=== PATIENT | female | born 1990 | race Caucasian/White ===

== ENCOUNTER 2018-01-20 05:03 | Emergency (ER) | payer OTHER ==
[2018-01-20] MEDS ORDERED: MAG HYDROX/AL HYDROX/SIMETH 30 ML UDC PO STA (05:27)
[2018-01-20] MEDS ORDERED: LIDOCAINE VISCOUS 2% 15 ML UDC MM STA (05:27)
--- NOTE | 2018-01-20 05:27 | ED Physician Documentation ---
PD HPI CHEST PAIN - Stated complaint Stated Complaint: CHEST PAIN - History obtained from History obtained from: Patient - History of Present Illness Timing - onset: Last night Timing - onset during: Rest Timing - duration: Days (1) Timing - details: Gradual onset, Still present Quality: Sharp, Pain (initially feeling pain substernal area and not changed with antacid. Then involved right chest and is worse with breathing. Now feeling similar to PTX she had about 10 years ago. Did have episode of symptoms similar to this in July this year. Seen in [facility] for it and had normal CXR. improved over few days with NSAIDs.) Location: Substernal, Right chest Radiation: No: Neck, Back, Abdominal Worsened by: Exertion, Inspiration. No: Eating, Movement, Palpation Associated symptoms: No: Shortness of air, Nausea, Feeling faint / dizzy, Cough Similar symptoms before: Diagnosis (pleurisy earlier this year. Recurrent PTX when younger and apical resection and pleurodesis about 10 years ago.) Recently seen: Emergency Dept (5 months ago at [facility] for similar and had normal CXR at that time.) Review of Systems Constitutional: denies: Fever, Chills Eyes: denies: Irritation Nose: reports: Rhinorrhea / runny nose (mild). denies: Congestion Throat: denies: Sore throat Cardiac: reports: Chest pain / pressure. denies: Palpitations, Pedal edema, Calf pain Respiratory: denies: Dyspnea, Cough, Wheezing GI: denies: Abdominal Pain, Nausea, Vomiting, Diarrhea Skin: denies: Rash, Lesions PD PAST MEDICAL HISTORY - Past Medical History Cardiovascular: None Respiratory: Other (pneumothorax) Neuro: None Endocrine/Autoimmune: None - Allergies Allergies/Adverse Reactions: Allergies Allergy/AdvReac Type Severity Reaction Status Date / Time No Known Drug Allergies Allergy Verified 01/20/18 05:15 PD ED PE NORMAL - Vitals Vital signs reviewed: Yes - General General: Alert and oriented X 3, No acute distress, Well developed/nourished - HEENT HEENT: Pharynx benign - Neck Neck: Supple, no meningeal sign, No adenopathy - Cardiac Cardiac: RRR, No murmur - Respiratory Respiratory: Clear bilaterally, Other (no chestwall tenderness) - Abdomen Abdomen: Soft, Non tender - Derm Derm: Normal color, Warm and dry, No rash - Extremities Extremities: No tenderness to palpate, No edema, No calf tenderness / cord - Neuro Neuro: Alert and oriented X 3, No motor deficit, Normal speech Results - Vitals Vitals: Vital Signs - 24 hr 01/20/18 05:12 Temperature 36.5 C Heart Rate 97 Respiratory 16 Rate Blood Pressure 126/74 O2 Saturation 100 Oxygen O2 Source Room air - Rads (name of study) chest 3 view Radiology: Prelim report reviewed (no pneumothorax), EMP read contemporaneously PD MEDICAL DECISION MAKING - ED course Complexity details: reviewed results, re-evaluated patient (not really changed with GI cocktail. She declined narcotic pain meds. Will treat with anti- inflammatories. ), considered differential, d/w patient - Sepsis Event Vital Signs: Vital Signs - 24 hr 01/20/18 05:12 Temperature 36.5 C Heart Rate 97 Respiratory 16 Rate Blood Pressure 126/74 O2 Saturation 100 Oxygen O2 Source Room air Departure - Departure Disposition: 01 Home, Self Care Clinical Impression: Pleuritic chest pain Condition: Stable Record reviewed to determine appropriate education?: Yes Instructions: ED Chest Pain Pleurisy Follow-Up: HERMES JORGE PA-C [Primary Care Provider] - Comments: No sign of pneumothorax or effusion nor infiltrate on your chest x-ray. Presume there is some inflammation around the lung called pleurisy. Take some anti-inflammatories such as ibuprofen or naproxen 2 tablets twice daily for the next week. Add Tylenol if needed for pain. Recheck if not improved over the next few days. Return if worsened pain, trouble breathing, fevers, coughing blood or other concerns.
[2018-01-20] MEDS ORDERED: IBUPROFEN 600 MG TABLET PO STA (05:29)
[2018-01-20] MEDS ORDERED: ACETAMINOPHEN 325 MG TABLET PO STA (05:29)
--- NOTE | 2018-01-20 06:03 | XRAY Report ---
Procedure Date: 01/20/2018 Accession Number: [id number] / [id number] Procedure: XR - Chest 3 View X-Ray CPT Code: 80725 FULL RESULT: EXAM: CHEST RADIOGRAPHY EXAM DATE: 01/20/2018 05:51 AM. CLINICAL HISTORY: Right chest pain, pleuritic; h/o PTX in the past. COMPARISON: None. TECHNIQUE: Frontal inspiratory frontal expiratory, lateral views. FINDINGS: Lungs/Pleura: No focal opacities evident. No pleural effusion. No pneumothorax. Normal volumes. Mediastinum: Heart and mediastinal contours are unremarkable. Other: None. IMPRESSION: Normal chest. No evidence of pneumothorax. RADIA
[2018-01-20] MEDS ORDERED: DEXAMETHASONE 10 MG/ML VIAL PO STA (06:07)
[2018-01-20] MEDS ORDERED: CHERRY SYRUP 10 ML UDC PO ONE (06:22)
[2018-01-20 06:36] VITALS: BP 126/72
== END 2018-01-20 06:34 | disposition home or self-care (01) ==
LOC: ED 05:03
DX: R07.81 Pleurodynia (principal)
CPT/HCPCS: 71047; 99283; A9270

== ENCOUNTER 2018-06-16 10:34 | Emergency (ER) | payer OTHER ==
[2018-06-16] MEDS ORDERED: IBUPROFEN 400 MG TABLET PO STA (10:46)
--- NOTE | 2018-06-16 10:49 | ED Physician Documentation ---
PD HPI BACK INJURY - Stated complaint Stated Complaint: LF BACK SIDE PX - History obtained from History obtained from: Patient, Family - History of Present Illness Location: Lower (She was going down the stairs last night and slipped and fell hitting her back against the carpeted stairs and has pain in the high left lumbar area without hematuria or other injuries.) Review of Systems Cardiac: denies: Chest pain / pressure, Palpitations Respiratory: denies: Dyspnea, Cough GI: denies: Abdominal Pain PD PAST MEDICAL HISTORY - Past Medical History Past Medical History: Yes Cardiovascular: None Respiratory: Other Neuro: None Endocrine/Autoimmune: None - Past Surgical History Past Surgical History: Yes - Present Medications Home Medications: Ambulatory Orders Medication Instructions Recorded Confirmed Bcp 06/16/18 - Allergies Allergies/Adverse Reactions: Allergies Allergy/AdvReac Type Severity Reaction Status Date / Time No Known Drug Allergies Allergy Verified 06/16/18 10:40 - Social History Does the pt smoke?: No Smoking Status: Never smoker Does the pt drink ETOH?: Yes Does the pt have substance abuse?: No - Immunizations Immunizations are current?: Yes - POLST Patient has POLST: No PD ED PE NORMAL - Vitals Vital signs reviewed: Yes - General General: Alert and oriented X 3, No acute distress - Neck Neck: Supple, no meningeal sign, No bony TTP - Abdomen Abdomen: Non tender - Back Back: Other (She is tender to the left side of the upper lumbar spine, question of a transverse process fracture. The ribs and thoracic spine are nontender and she is not really tender in the midline of the lumbar spine either.) - Derm Derm: Normal color, Warm and dry - Neuro Neuro: Alert and oriented X 3, Normal speech Results - Vitals Vitals: Vital Signs - 24 hr 06/16/18 10:37 Temperature 37.2 C Heart Rate 86 Respiratory 18 Rate Blood Pressure 124/74 O2 Saturation 100 Oxygen O2 Source Room air - Labs Labs: Laboratory Tests 06/16/18 10:50 Urine Color YELLOW Urine Clarity CLEAR Urine pH 6.0 Ur Specific [place] 1.025 Urine Protein NEGATIVE Urine Glucose (UA) NEGATIVE Urine Ketones TRACE Urine Occult Blood TRACE-LYSE Urine Nitrite NEGATIVE Urine Bilirubin NEGATIVE Urine Urobilinogen 0.2 (NORMAL) Ur Leukocyte Esterase NEGATIVE Ur Microscopic Review NOT INDICATED Urine Culture Comments NOT INDICATED Urine HCG, Qual NEGATIVE - Rads (name of study) L spine XR Radiology: EMP read contemporaneously (normal) Departure - Departure Disposition: 01 Home, Self Care Clinical Impression: Back contusion Qualifiers: Encounter type: initial encounter Laterality: left Qualified Code(s): S20.222A - Contusion of left back wall of thorax, initial encounter Condition: Good Record reviewed to determine appropriate education?: Yes Instructions: ED Low Back Pain Injury Comments: Ibuprofen as needed for pain, ice. Return if worse or if new symptoms develop. Follow-up with your doctor in 2 weeks if not better.
[2018-06-16 11:04] LABS: BILIRUBIN,URINE NEGATIVE (NEGATIVE); GLUCOSE, URINE (UA) NEGATIVE (NEGATIVE); KETONES,URINE (UA) TRACE mg/dL (NEGATIVE); LEUKOCYTE ESTERASE, URINE NEGATIVE (NEGATIVE); NITRITE,URINE NEGATIVE (NEGATIVE); OCCULT BLOOD,URINE TRACE-LYSE (NEGATIVE); PROTEIN,URINE NEGATIVE (NEGATIVE); UROBILINOGEN,URINE 0.2 (NORMAL) E.U./dL (NORMAL)
[2018-06-16 11:06] LABS: CLARITY,URINE CLEAR (CLEAR)
[2018-06-16 11:12] LABS: HCG UR QUAL NEGATIVE
--- NOTE | 2018-06-16 12:04 | XRAY Report ---
Reason: back pain p fall, ?high left transv process frx Procedure Date: 06/16/2018 Accession Number: [id number] / [id number] Procedure: XR - Lumbar Spine 2 View CPT Code: FULL RESULT: EXAM: LUMBOSACRAL SPINE RADIOGRAPHY EXAM DATE: 06/16/2018 11:51 AM. CLINICAL HISTORY: Back pain p fall, ?high left transv process frx. COMPARISONS: None. TECHNIQUE: 2 views. FINDINGS: Alignment: Normal. No spondylolisthesis or scoliosis. Bones: Five [id number] lumbar vertebral bodies are present. No fractures or bone lesions. Disks: Normal. Disk heights are maintained. Facets: No degenerative changes. Sacroiliac Joints: Unremarkable. Soft Tissues: Normal. The visualized bowel gas pattern is normal. IMPRESSION: Normal lumbar spine radiography. RADIA
[2018-06-16 12:14] VITALS: BP 115/77
== END 2018-06-16 12:24 | disposition home or self-care (01) ==
LOC: ED 10:34
DX: S20.222A Contusion of left back wall of thorax, initial encounter (principal); W10.9XXA Fall (on) (from) unspecified stairs and steps, initial encounter
CPT/HCPCS: 72100; 81003; 81025; 99283; A9270; 81001; 87086

== ENCOUNTER 2018-10-10 17:11 | Emergency (ER) | payer OTHER ==
--- NOTE | 2018-10-10 18:14 | XRAY Report ---
Reason: cough Procedure Date: 10/10/2018 Accession Number: [id number] / [id number] Procedure: XR - Chest 2 View X-Ray CPT Code: 70303 FULL RESULT: EXAM: CHEST RADIOGRAPHY EXAM DATE: 10/10/2018 05:40 PM. CLINICAL HISTORY: Cough. COMPARISON: 01/20/2018 5:34 AM. TECHNIQUE: 2 views. FINDINGS: Lungs/Pleura: There is new mild patchy airspace disease in the right middle lobe. Lungs otherwise clear. No pleural effusion. Mediastinum: Heart and mediastinal contours are unremarkable. Other: None. IMPRESSION: 1. New mild patchy right middle lobe pneumonia. RADIA
--- NOTE | 2018-10-10 19:01 | ED Physician Documentation ---
PD HPI URI - Stated complaint Stated Complaint: CHEST THANG/COUGH - Chief complaint Chief Complaint: Resp - History obtained from History obtained from: Patient - History of Present Illness Timing - onset: Other (She was sick last week with the flu, on tamiflu, was getting better but the never really got completely better and has more of a cough. It is productive but she does not spit it out so she does not know what color it is. She is mildly short of breath but denies fevers.) Review of Systems Constitutional: denies: Fever, Chills Nose: denies: Rhinorrhea / runny nose, Congestion Throat: denies: Sore throat Cardiac: denies: Chest pain / pressure, Palpitations Respiratory: reports: Cough PD PAST MEDICAL HISTORY - Past Medical History Cardiovascular: None Respiratory: Other Neuro: None Endocrine/Autoimmune: None - Past Surgical History Past Surgical History: Yes - Present Medications Home Medications: Ambulatory Orders Medication Instructions Recorded Confirmed Bcp 06/16/18 Azithromycin 1 tab PO DAILY #4 tablet 10/10/18 - Allergies Allergies/Adverse Reactions: Allergies Allergy/AdvReac Type Severity Reaction Status Date / Time No Known Drug Allergies Allergy Verified 10/10/18 17:27 - Social History Does the pt smoke?: No Smoking Status: Never smoker Does the pt drink ETOH?: Yes Does the pt have substance abuse?: No - Immunizations Immunizations are current?: Yes - POLST Patient has POLST: No PD ED PE NORMAL - Vitals Vital signs reviewed: Yes - General General: Alert and oriented X 3, No acute distress - Neck Neck: Supple, no meningeal sign, No bony TTP - Cardiac Cardiac: RRR, No murmur - Respiratory Respiratory: No respiratory distress, Clear bilaterally - Abdomen Abdomen: Non tender - Derm Derm: No rash - Neuro Neuro: Alert and oriented X 3, Normal speech Results - Vitals Vitals: Vital Signs - 24 hr 10/10/18 17:22 Temperature 36.7 C Heart Rate 96 Respiratory 16 Rate Blood Pressure 125/82 H O2 Saturation 98 Oxygen O2 Source Room air - Rads (name of study) 2v c hest Radiology: EMP read contemporaneously (patchy RML pNA) Departure - Departure Disposition: 01 Home, Self Care Clinical Impression: Pneumonia Qualifiers: Pneumonia type: due to unspecified organism Laterality: right Lung location: middle lobe of lung Qualified Code(s): J18.1 - Lobar pneumonia, unspecified organism Condition: Good Record reviewed to determine appropriate education?: Yes Instructions: Pneumonia Dc Prescriptions: Azithromycin 1 tab PO DAILY #4 tablet Comments: Call your doctor to arrange a follow-up appointment, make the next available appointment. In the interim, return anytime if worse or if new symptoms develop.
[2018-10-10] MEDS ORDERED: AZITHROMYCIN 250 MG TABLET PO STA (19:07)
[2018-10-10 19:15] VITALS: BP 132/82
== END 2018-10-10 19:20 | disposition home or self-care (01) ==
LOC: ED 17:11
DX: J18.1 Lobar pneumonia, unspecified organism (principal)
CPT/HCPCS: 71046; 99283; A9270